=== PATIENT | male | born 1970 | race Caucasian/White ===

== ENCOUNTER → 2020-07-18 | Outpatient (CLI) | payer BC | LOC: MRI 08:59 | DX: M67.432 Ganglion, left wrist (principal); Z53.8 Procedure and treatment not carried out for other reasons ==

== ENCOUNTER → 2020-08-20 | Outpatient (CLI) | payer BC | LOC: EMI 07-27 14:30 | DX: M67.432 Ganglion, left wrist (principal) | CPT/HCPCS: 73221 ==

== ENCOUNTER → 2021-05-31 | Outpatient (CLI) | payer BC ==
[~2021-05-31] MED LIST: ALBUTEROL1.25 MG/3 INH; ALLEGRA-D 24 H1 EACH PO; ARIMIDEX1 MG PO; CIALIS5 MG PO; FERROUS GLUCON324 M2 PO; FISH OIL PO; GLYCOPYRROLATE1 MG PO; LEVOTHYROXINE50 MC1 PO; PRILOSEC OTC20 MG PO; PROVENTIL HFA6.7 GM INH; TESTOSTERO200 MG/1 M SQ; ULTRAM50 MG PO; VIT PO; VITAMIN D PO; ZETIA10 MG PO; [UNRECOGNIZED DRUG - OTHER] PO
== END ==
LOC: SLEEP 21:30
DX: G47.33 Obstructive sleep apnea (adult) (pediatric) (principal); G47.37 Central sleep apnea in conditions classified elsewhere
CPT/HCPCS: 95811

== ENCOUNTER → 2021-06-08 | Outpatient (CLI) | payer BC | LOC: OPSV2 10:00 | DX: Z01.810 Encounter for preprocedural cardiovascular examination (principal) | CPT/HCPCS: 93005 ==

== ENCOUNTER → 2021-06-10 | Day surgery (SDC) | payer BC ==
[~2021-06-10] VITALS: Ht 180.3 cm; Wt 119.7 kg
== END | disposition home or self-care (01) ==
LOC: OR 06:27
DX: M67.432 Ganglion, left wrist (principal); K21.9 Gastro-esophageal reflux disease without esophagitis; E03.9 Hypothyroidism, unspecified; E78.5 Hyperlipidemia, unspecified; Z20.822 Contact with and (suspected) exposure to COVID-19
CPT/HCPCS: J0690; J1100; J1170; J1885; J2250; J2405; J2704; J3010; J7120

== ENCOUNTER 2021-07-19 02:57 | Inpatient (IN) | payer BC ==
[2021-07-19 03:55] LABS: RED BLOOD COUNT 6.09 M/UL (4.20-5.50); WHITE BLOOD COUNT 5.9 K/UL (4.5-11.0)
[2021-07-19 04:17] LABS: BUN/CREATININE RATIO 14 (0-10)
[2021-07-19] MEDS ORDERED: K-TAB ER20 MEQ PO (08:19)
== END 2021-07-19 14:05 | disposition home or self-care (01) | DRG 558 ==
LOC: ER1 02:57 → CDU 13:24
PROVIDERS: Physician Assistant; ADMIT Internal Medicine
DX: M62.82 Rhabdomyolysis (principal); Z20.822 Contact with and (suspected) exposure to COVID-19; K21.9 Gastro-esophageal reflux disease without esophagitis; E03.9 Hypothyroidism, unspecified; E78.5 Hyperlipidemia, unspecified; N62 Hypertrophy of breast; E87.6 Hypokalemia; T38.7X5A Adverse effect of androgens and anabolic congeners, initial encounter; T45.1X5A Adverse effect of antineoplastic and immunosuppressive drugs, initial encounter; T46.6X5A Adverse effect of antihyperlipidemic and antiarteriosclerotic drugs, initial encounter; D75.1 Secondary polycythemia
CPT/HCPCS: 0240U; 70450; 71045; 80053; 80307; 81001; 82550; 82553; 83735; 83874; 83880; 84439; 84443; 84484; 85025; 85610; 85652; 85730; 86140; 87081; 87086; 87880; 93005; 99285; J7030